=== PATIENT | female | born 1980 | race Caucasian/White ===

== ENCOUNTER 2016-10-30 20:06 | Inpatient (IN) | payer OTHER ==
[~2016-10-30] VITALS: Ht 157.5 cm; Wt 90.7 kg
[2016-10-30] MEDS ORDERED: PREN29TA PO (20:31)
[2016-10-30] MEDS: LACTATED RINGER'S 1000 ML INJ 1,000 ML IV SCH (21:12)
[2016-10-30] MEDS ORDERED: LACTATED RINGER'S 1000 ML INJ 1,000 ML IV PRN (21:12)
--- NOTE | 2016-10-30 21:12 | HHI.HP ---
HPI Chief Complaint Here for induction Date Seen: Oct 30, 2016 Time Seen: 21:09 Travel History International Travel<30 Days: No Contact w/Intl Traveler<30Days: No Known Affected Area: No History of Present Illness HPI 36-year-old female at 42 weeks and 1 day here for induction. She has had an uneventful without any antepartum issues. She received her care with [facility] and her group B strep was negative. Para: 0 : 1 History Past Medical History Medical History: Denies Significant Hx Past Surgical History Surgical History: No Previous Surgery Family History Family History: Negative Social History Alcohol Use: No Tobacco Use: No Substance Abuse: No Allergies-Medications (Allergen,Severity, Reaction): Coded Allergies: No Known Allergies (Unverified , 10/30/16) Home Meds Reported Medications Vit-Iron Carbonyl ( Plus Iron 29-1 mg)1 Tab Tab1 Tab PO DAILY #30 TAB Ref 0 10/30/16 Review of Systems Except as stated in HPI: all other systems reviewed are Neg Physical Exam Narrative GENERAL: Well-nourished, well-developed patient. SKIN: Warm and dry. HEAD: Normocephalic and atraumatic. EYES: No scleral icterus. No injection or drainage. ENT: No nasal drainage noted. Mucous membranes pink. Airway patent. NECK: Supple, trachea midline. No JVD. CARDIOVASCULAR: Regular rate and rhythm without murmurs, gallops, or rubs. RESPIRATORY: Breath sounds equal bilaterally. No accessory muscle use. BREASTS: Bilateral exam showed no masses , no retractions, no nipple discharge. ABDOMEN/GI: Abdomen soft, non-tender, bowel sounds present, no rebound, no guarding Gravid to [37-] weeks size estimated weight by Ismael's is 7-1/2 pounds Fundal Height: [-] GENITOURINARY: External Genitalia: intact and normal in appearance BUS glands: [-Normal] Cervix: [Posterior-] Dilatation: [-Fingertip] Effacement: [-0%] Station: [High-] Presentation: [-Cephalic] Membranes: [intact] Uterine Contractions: [-Occasional] FHT's: Category: [-1] Baseline: [150-] Reactive: [-Moderate] Variability: [Moderate-] Decels: [-Absent] EXTREMITIES: No cyanosis or edema. BACK: Nontender without obvious deformity. No CVA tenderness. NEUROLOGICAL: Awake and alert. Motor and sensory grossly within normal limits. Five out of 5 muscle strength in all muscle groups. Normal speech. Data Data Vital Signs Reviewed: Yes Assessment/Plan Assessment and Plan 36-year-old at 42 weeks and 1 day for induction Plan Cytotec 25 g to repeated every 4 hours Group B strep negative Luh Ortiz MD Oct 30, 2016 21:12
[2016-10-30] MEDS ORDERED: MINERAL OIL 10 ML VIAL TOPICAL PRN (21:15)
[2016-10-30] MEDS ORDERED: SODIUM CHLORIDE 0.9% FLUSH 10 ML FLUSH IV FLUSH PRN (21:15)
[2016-10-30] MEDS ORDERED: ONDANSETRON HCL 4 MG/2 ML VIAL IV PRN (21:15)
[2016-10-30] MEDS ORDERED: CITRIC ACID-SODIUM CITRATE LIQ 30 ML UDC PO SCH (21:15)
[2016-10-30] MEDS ORDERED: LIDOCAINE HCL 1% 50 ML VIAL I-DERMAL PRN (21:15)
[2016-10-30] MEDS ORDERED: LIDOCAINE HCL 1% 50 ML VIAL INFIL PRN (21:15)
[2016-10-30] MEDS ORDERED: OXYTOCIN 30 UNITS-500ML PREMIX 500 ML IV ONE (21:15)
[2016-10-30] MEDS ORDERED: SODIUM CHLORID 0.9% 500 ML INJ 500 ML IV PRN (21:15)
[2016-10-30] MEDS: MISOPROSTOL 25 MCG SUPP VAGINAL SCH (21:15)
[2016-10-30] MEDS ORDERED: SODIUM CHLOR 0.9% 1000 ML INJ 1,000 ML IV PRN (21:32)
[2016-10-30 21:34] LABS: BACTERIA, URINE RARE /hpf; BLOOD, URINE NEG (NEG); COMMENT (UR) CULT NOT INDICATED; CULTURE IF INDICATED CULT NOT INDICATED; GLUCOSE,URINE NEG (NEG); KETONE, URINE NEG (NEG); MUCUS URINE FEW /lpf (OCC); NITRITE,URINE NEG (NEG); PH, URINE 6.5 (5.0-8.5); SQUAMOUS EPITHELIAL CELL URINE 2 /hpf (0-5); URINE COLOR LIGHT-YELLOW (YELLW/STRAW)
[2016-10-30 21:42] LABS: AUTOMATED NEUTROPHIL # 8.5 TH/MM3 (1.8-7.7); BASOPHIL % 0.3 % (0.0-2.0); EOSINOPHIL # 0.1 TH/MM3 (0-0.4); EOSINOPHIL % 1.2 % (0.0-4.0); HEMO FLAGS DIFF FINAL; LYMPH % 13.8 % (9.0-44.0); LYMPHOCYTE # 1.5 TH/MM3 (1.0-4.8); MEAN CELL VOLUME 89.8 FL (80.0-100.0); MEAN CORPUSCULAR HEMOGLOBIN 31.6 PG (27.0-34.0); MEAN CORPUSCULAR HGB CONC 35.3 % (32.0-36.0); MONO % 6.2 % (0.0-8.0); NEUT % 78.5 % (16.0-70.0); PLATELET COUNT 213 TH/MM3 (150-450); RED BLOOD COUNT 4.13 MIL/MM3 (4.00-5.30); RED CELL DISTRIBUTION WIDTH 13.2 % (11.6-17.2); WHITE BLOOD COUNT 10.8 TH/MM3 (4.0-11.0)
[2016-10-30 21:44] VITALS: BP 130/76; PULSE 97
[2016-10-30 21:45] VITALS: RESP 18; TEMP 98.2
[2016-10-31] VITALS (11 sets, daily range): BP systolic 113–147; BP diastolic 67–81; PULSE 81–121; RESP 17–18; TEMP 97.4–97.8
[2016-10-31] MEDS: MISOPROSTOL 25 MCG SUPP VAGINAL SCH ×4 (03:00→13:15)
[2016-10-31] MEDS: LACTATED RINGER'S 1000 ML INJ 1,000 ML IV SCH ×2 (07:00→21:12)
[2016-10-31] MEDS: SODIUM CHLORIDE 0.9% FLUSH 10 ML FLUSH IV FLUSH SCH ×2 (07:48→21:00)
--- NOTE | 2016-10-31 08:09 | PD.LABORPN ---
Subjective Subjective 36-year-old at 42 and 2/7 weeks today. She was admitted yesterday for IOL , with cervical ripening via Cytotec 2. Patient has no complaints this morning , and is not feeling any contractions. She would like to eat. Objective Vital Signs Vital Signs Date Time Temp Pulse Resp B/P Pulse Ox O2 Delivery O2 Flow Rate FiO2 10/31/16 07:20 97.7 91 18 113/67 10/31/16 03:00 18 Objective Pelvic Exam: Cervix: 01/60%/soft/posterior/high Membranes: Intact Uterine Contractions: None noted FHT's: Category: 1 Baseline: 130 Reactive:to 140 Variability: mod Decels: absent Assessment/Plan Assessment and Plan 36-year-old at 42+ weeks, postdates, who is admitted for induction of her OB care with Clary [facility]. Intrauterine : Category 1 tracing, reassuring Expect vaginal delivery Amniotic sac intact Cytotec 2 overnight. Will likely administer another dose of Cytotec Epidural for pain CBC essentially unremarkable. H/H 13.1/37.0. U/A within normal limits IV fluids per protocol Monitor heart tones Routine care GBS negative IRINA Ortiz, YVONNEW Dr. Cleaning, PGY 2 Claudia Rodriguez MD R1 Oct 31, 2016 08:09
--- NOTE | 2016-10-31 11:49 | PD.LABORPN ---
Subjective Subjective Patient resting comfortably in bed. (Isabel Cleaning MD R2) Objective Vital Signs Vital Signs Date Time Temp Pulse Resp B/P Pulse Ox O2 Delivery O2 Flow Rate FiO2 10/31/16 07:20 97.7 91 18 113/67 Objective Pelvic Exam: Cervix: posterior Dilatation: 0 Effacement: 50 Station: -2 Presentation: vertex Membranes: intact Uterine Contractions: none FHT's: Category: I Baseline: 130 Reactive: + Variability: moderate Decels: none (Isabel Cleaning MD R2) Assessment/Plan Assessment and Plan 36 year old at 42-2/7 weeks gestation. 1. IUP- Category I tracing, reassuring. 2. IOL for post-dates- s/p Cytotec x 3. Attempted Ling bulb, however was unsuccessful as cervix remains closed. Will try one more dose of Cytotec. 3. GBS negative. sdw Dr. Pradhan and Dr. Helena Rodriguez R1 (Isabel Cleaning MD R2) Assessment and Plan I saw an examined the patient with the resident physicians. I placed a speculum to visualize the cervix and attempted to place ling catheter. unable to advance catheter into cervical os. Will place another cytotec and reassess in 4 hours (Facundo Pradhan MD) Isabel Cleaning MD R2 Oct 31, 2016 11:49 Facundo Pradhan MD Oct 31, 2016 13:45
--- NOTE | 2016-10-31 16:53 | PD.LABORPN ---
Subjective Subjective Patient was seen and evaluated at bedside. She has received Cytotec x 4 since yesterday evening. Ling bulb placement was attempted at approximately 1130 this morning prior to Ling bulb attempt this morning, unsuccessful due to cervix not dilated enough. Ling bulb placement was reattempted at approximately 1630 with smaller Ling, not successful. Cervix now 1/50%/-3, small change from admission. No CTX. (Claudia Rodriguez MD R1) Objective Vital Signs Vital Signs Date Time Temp Pulse Resp B/P Pulse Ox O2 Delivery O2 Flow Rate FiO2 10/31/16 11:53 97.7 18 10/31/16 11:48 81 139/79 Objective Pelvic Exam: Cervix 1/50%/-3 Membranes: intact Uterine Contractions: none FHT's: Category:1 Baseline: 130 Reactive: y to 150 Variability: mod Decels: absent (Claudia Rodriguez MD R1) Assessment/Plan Assessment and Plan 36-year-old at 42+ weeks, postdates, who is admitted for induction of labor. OB care with Cl[facility]. Intrauterine : Category 1 tracing, reassuring Expect vaginal delivery Amniotic sac intact Cytotec x4 overnight. Ling bulb placement attempted x 2. Patient to eat dinner, shower Will administer Cervidil this evening Epidural for pain PRN CBC essentially unremarkable. H/H 13.1/37.0. U/A within normal limits IV fluids per protocol Monitor heart tones Routine care GBS negative SDW Dr. Pradhan, Dr. Cleaning (Claudia Rodriguez MD R1) Assessment and Plan Cervical exam performed: 50/-3 speculum placed in vagina. difficult to fully visualize cervix secondary to collapsing vaginal tissue. Cervical os identified. attempted to place ling catheter into cervix. multiple attempts to place, but unable to advance ling beyond internal os. Bulb expelled with each fill attempt. Also attempted to place during digital exam, but unable to guide catheter into os. Will give patient rest and allow to eat, then proceed with cervidil. (Facundo Pradhan MD) Claudia Rodriguez MD R1 Oct 31, 2016 16:53 Facundo Pradhan MD Oct 31, 2016 16:56
[2016-10-31] MEDS ORDERED: DINOPROSTONE 10 MG VAG INSERT VAGINAL ONE (17:30)
[2016-11-01] VITALS (70 sets, daily range): BP systolic 104–145; BP diastolic 53–94; PULSE 68–137; RESP 16–18; TEMP 96.5–98.7; O2SAT 99–100
[2016-11-01] MEDS ORDERED: OXYTOCIN 30 UNITS-500ML PREMIX 500 ML IV SCH (07:15)
--- NOTE | 2016-11-01 07:20 | PD.LABORPN ---
Subjective Subjective Patient reports no CTX or complaints. SROM occurred at 0649 this morning, large amount of clear fluid per nurse. Cervidil was placed at 8pm last night, and patient states she may have expelled it but is not sure. (Claudia Rodriguez MD R1) Objective Vital Signs Vital Signs Date Time Temp Pulse Resp B/P Pulse Ox O2 Delivery O2 Flow Rate FiO2 11/01/16 07:08 90 126/83 11/01/16 07:07 18 11/01/16 06:03 97.9 18 11/01/16 06:00 86 124/75 11/01/16 01:57 97.8 18 11/01/16 01:51 96 124/65 Objective Pelvic Exam: Cervix 1-2/50%/-3 Membranes: intact Uterine Contractions: none FHT's: Category:1 Baseline: 120 Reactive: y to 140 Variability: mod Decels: absent (Claudia Rodriguez MD R1) Assessment/Plan Problem List: (1) 42 weeks gestation of Assessment and Plan 36-year-old at 42+ weeks, postdates, who is admitted for induction of labor. OB care with [facility]. Intrauterine : Category 1 tracing, reassuring Expect vaginal delivery Amniotic sac intact Cytotec x4 overnight. Chambers bulb placement attempted x 2. Patient to eat dinner, shower Will administer Cervidil this evening Epidural for pain PRN CBC essentially unremarkable. H/H 13.1/37.0. U/A within normal limits IV fluids per protocol Monitor heart tones Routine care GBS negative Discussed with Dr. Pradhan (Claudia Rodriguez MD R1) Assessment and Plan The exam, history, and the medical decision-making described in the above note were completed with the assistance of the resident provider. I reviewed and agree with the findings presented. I attest that I had a [id number] encounter with the patient on the same day, and personally performed and documented my assessment and findings in the medical record. (Facundo Pradhan MD) Claudia Rodriguez MD R1 Nov 01, 2016 07:20 Facundo Pradhan MD Nov 01, 2016 08:52
[2016-11-01] MEDS: LACTATED RINGER'S 1000 ML INJ 1,000 ML IV SCH (07:58)
[2016-11-01] MEDS: SODIUM CHLORIDE 0.9% FLUSH 10 ML FLUSH IV FLUSH SCH (09:00)
--- NOTE | 2016-11-01 10:46 | PD.LABORPN ---
Subjective Subjective This is a 36y/o at 42w3d who was admitted for induction of labor. S/p 4 doses of cytotec and 1 cervidil. SROM at 0649, clear. Oxytocin was started at 0815 currently at 6mu. Pt is doing well, resting comfortably but breathing through contractions. She would like to try to deliver without an epidural but is not opposed to it. Objective Vital Signs Vital Signs Date Time Temp Pulse Resp B/P Pulse Ox O2 Delivery O2 Flow Rate FiO2 11/01/16 09:34 18 11/01/16 09:33 90 145/94 11/01/16 08:45 18 11/01/16 08:41 100 129/81 11/01/16 08:00 18 11/01/16 07:56 90 125/79 11/01/16 07:40 97.4 11/01/16 07:08 90 126/83 11/01/16 07:07 18 11/01/16 06:03 97.9 18 11/01/16 06:00 86 124/75 Objective Pelvic Exam: VE: 3/70/-2 Membranes:ruptured Uterine Contractions: q 1-2 minutes apart; IUPC placed FHT's: Category: 1, segment of loss of contact, ISE placed after IUPC ? presentation due to inability to get FHR on external monitor bedside us: vertex, maybe asynclitic. Assessment/Plan Problem List: (1) 42 weeks gestation of Assessment and Plan 36y/o at 42w3d s/p long course cervical ripening, currently on oxytocin with SROM. -reassuring status -discussed benefits of epidural in depth as well as labor process -pt will decide -anticipate Cristy Garrison MD Nov 01, 2016 10:46
[2016-11-01] MEDS ORDERED: fentaNYL 2MCG-BUPIV 0.125% INJ 100 ML ONE (13:07)
--- NOTE | 2016-11-01 13:56 | PD.LABORPN ---
Subjective Subjective Patient resting in bed comfortably with epidural in place. (Isabel Cleannig MD R2) Objective Vital Signs Vital Signs Date Time Temp Pulse Resp B/P Pulse Ox O2 Delivery O2 Flow Rate FiO2 11/01/16 13:31 112 134/93 11/01/16 13:30 89 11/01/16 13:28 98 132/78 11/01/16 13:26 89 142/86 11/01/16 13:25 89 11/01/16 13:15 88 11/01/16 13:09 97.5 18 11/01/16 13:05 86 11/01/16 13:02 87 144/85 11/01/16 13:00 89 11/01/16 12:18 79 133/74 11/01/16 12:15 76 11/01/16 12:00 79 124/68 11/01/16 11:59 18 11/01/16 11:55 86 11/01/16 11:50 85 11/01/16 11:13 97.8 18 11/01/16 11:10 96 11/01/16 11:05 93 11/01/16 11:00 94 11/01/16 10:50 110 11/01/16 10:46 104 141/83 11/01/16 09:34 18 11/01/16 09:33 90 145/94 11/01/16 08:45 18 11/01/16 08:41 100 129/81 11/01/16 08:00 18 11/01/16 07:56 90 125/79 11/01/16 07:40 97.4 11/01/16 07:08 90 126/83 11/01/16 07:07 18 11/01/16 06:03 97.9 18 11/01/16 06:00 86 124/75 Objective Pelvic Exam: Cervix: posterior Dilatation: 4-5 Effacement: 70 Station: -2 Presentation: vertex Membranes: ruptured Uterine Contractions: q2-3min FHT's: Category: II Baseline: 120 Reactive: + Variability: moderate Decels: intermittent variable decelerations (Isabel Cleaning MD R2) Assessment/Plan Problem List: (1) 42 weeks gestation of Assessment and Plan 36 year old at 42-3/7 weeks gestation. 1. IUP- Category II tracing, s/p amnioinfusion, continue IV fluids and position changes, continue to monitor. 2. IOL for post-dates- s/p Cytotec x 4. Attempted Chambers bulb, however unsuccessful. s/p Cervidil overnight, SROM, now on Pitocin 230. Cervical change noted. 3. Epidural for pain control. 4. GBS negative. dw Dr. Garrison (Isabel Cleaning MD R2) Assessment and Plan Agree with above. D/w pt intolerance of labor with recurrent variable decelerations with oxytocin. Oxytocin has been started and stopped multiple times during the day. Will keep pit off and restart once fetus has recovered. Explained that with this pattern of pitocin being on/off all day my suspicion is that pt will need a c/s. (Cristy Garrison MD) Isabel Cleaning MD R2 Nov 01, 2016 13:56 Cristy Garrison MD Nov 01, 2016 15:23
[2016-11-01] MEDS ORDERED: OXYTOCIN 10 UNIT/ML AMP ONE (15:48)
[2016-11-01] MEDS ORDERED: EPIDURAL-NO SYSTEMIC NARCOTICS PRN (16:45)
[2016-11-01] MEDS ORDERED: EPIDURAL-NALOXONE HCL 0.4 MG/ML AMP IV PRN (16:45)
[2016-11-01] MEDS ORDERED: EPIDURAL-DIPHENHYDRAMINE HCL 50 MG CAP PO PRN (16:45)
[2016-11-01] MEDS ORDERED: EPIDURAL-DIPHENHYDRAMINE HCL 50 MG/ML VIAL IV PUSH PRN (16:45)
[2016-11-01] MEDS ORDERED: EPIDURAL-DO NOT ADMINISTER ANTICOAGULANTS PRN (16:45)
[2016-11-01] MEDS ORDERED: ONDANSETRON HCL 4 MG/2 ML VIAL ONE (16:55)
[2016-11-01] MEDS ORDERED: MORPHINE SULFATE PF 5 MG/10 ML VIAL ONE (16:55)
[2016-11-01] MEDS ORDERED: SIMETHICONE 80 MG CHEWABLE TAB PO PRN (17:00)
[2016-11-01] MEDS ORDERED: ZOLPIDEM TARTRATE 5 MG TAB PO PRN (17:00)
[2016-11-01] MEDS ORDERED: OXYTOCIN 30 UNITS-500ML PREMIX 500 ML IV ONE (17:00)
[2016-11-01] MEDS ORDERED: ACETAMINOPHEN 325 MG TAB PO PRN (17:00)
[2016-11-01] MEDS ORDERED: SODIUM CHLORIDE 0.9% FLUSH 10 ML FLUSH IV FLUSH PRN (17:00)
[2016-11-01] MEDS ORDERED: oxyCODONE/ACETAMINOPHEN 5 MG/325 MG TAB PO PRN (17:00)
[2016-11-01] MEDS ORDERED: DOCUSATE SODIUM 50 MG/SENNA 8.6 MG TAB PO PRN (17:00)
--- NOTE | 2016-11-01 17:04 | PD.OP ---
Operative Report Date of Surgery: Nov 01, 2016 Preoperative Diagnosis: (1) 42 weeks gestation of (2) Non-reassuring electronic monitoring tracing Postoperative Diagnosis: (1) 42 weeks gestation of (2) Non-reassuring electronic monitoring tracing Procedure: Low Transverse Section Anesthesia: epidural Surgeon: Dr. Garrison Window Systems Administrator(s): Lauren Longoria and Hamida Child Resident Surgeon: Dr. Cleaning PGY-2 Operation and Findings: Findings: Normal tubes/ovaries bilaterally delivery of a viable male Apgars 8/9. Birthweight 3990g. Pathology: placenta, cord, membranes sent for evaluation This is a 36y/o at 42w3d who was admitted for post dates induction of labor. During the admission she received 4 cytotec, and 1 cervidil. SROM was at 0649 with oxytocin started at 8am. Over the course of the day oxytocin was stopped and restarted a few times due to recurrent variable decelerations. The patient was counseled throughout the day about the tracing and the potential for c/s given intolerance to oxytoin. After informed consent was obtained the patient was taken to the operating room where her epidural anesthesia was found to be adequate. A Chambers catheter was already in place and she was prepared and draped in the normal sterile fashion in the dorsal supine position with a leftward tilt. A Pfannenstiel/midline skin incision was then made with the scalpel and carried through to the underlying layer of fascia with the Bovie. The fascia was incised in the midline and extended laterally with the Bull scissors. The incision was then grasped with the Karri clamps, elevated and the underlying rectus muscles dissected off bluntly/sharply with the Bull scissors. Attention was then turned to the inferior aspect of this incision which, in a similar fashion, was grasped, tented up with the Karri clamps, and the rectus muscles dissected off bluntly/sharply with the Bull scissors. The rectus muscles were then in the midline, and the peritoneum identified, tented up, and entered bluntly using manual dissection. The peritoneal incision was then extended superiorly and inferiorly with good visualization of the bladder. The bladder blade was then inserted and the lower uterine segment was incised in a transverse fashion with the scalpel. The uterine incision was then extended laterally digitally. The bladder blade was removed then the 's head delivered atraumatically, nuchal times 2 was reduced, the body was delivered atraumatically. The cord clamped and cut after 30 seconds and the was handed to the awaiting baby nurse. The placenta was then removed, the uterus exteriorized, and cleared of all clots and debris. The uterine incision was repaired with 0 Monocryl in a running, locked fashion. A second layer of the same suture was used in an imbricating fashion to obtain excellent hemostasis. The abdominal cavity was cleaned with a moist lap and the uterus was replaced into the abdomen. The gutters were cleared of all clots and debris the hysterotomy site was noted to be hemostatic. The peritoneum was closed with 2-0 Vicryl in a running fashion. The fascia was then reapproximated with 0 Vicryl in a running fashion. The subcutaneous tissue was closed with 3-0 chromic and the skin was closed with 4-0 in a subcuticular fashion noting excellent hemostasis. Dermabond was placed along the length of the incision. The patient tolerated the procedure well. Sponge, lap and needle counts were correct times two. The patient was taken to the recovery room in stable condition. Attestation I was present and scrubbed for the entire case and actively assisted in the procedure. Isabel Cleaning MD R2 Nov 01, 2016 17:04 Cristy Garrison MD Nov 01, 2016 19:26
[2016-11-01] MEDS ORDERED: OXYTOCIN 30 UNITS-500ML PREMIX 500 ML ONE (17:34)
[2016-11-01] MEDS ORDERED: SODIUM CHLORIDE 0.9% FLUSH 10 ML FLUSH IV FLUSH SCH (21:00)
[2016-11-01] MEDS ORDERED: LACTATED RINGER'S 1000 ML INJ 1,000 ML IV SCH (22:00)
[2016-11-01] MEDS: ONDANSETRON HCL 4 MG/2 ML VIAL IV PUSH PRN (22:01)
[2016-11-02] MEDS ORDERED: OXYTOCIN 30 UNITS-500ML PREMIX 500 ML IV PRN (03:00)
[2016-11-02 04:00] VITALS: BP 103/54; PULSE 80; RESP 18; TEMP 98.1
[2016-11-02] MEDS: ONDANSETRON HCL 4 MG/2 ML VIAL IV PUSH PRN (04:39)
[2016-11-02] MEDS ORDERED: LACTATED RINGER'S 1000 ML INJ 500 ML IV SCH (05:15)
[2016-11-02] MEDS: LACTATED RINGER'S 1000 ML INJ 1,000 ML IV SCH (06:24)
--- NOTE | 2016-11-02 07:17 | HHI.OB ---
Subjective Remarks Postoperative day # 1. AFVSS overnight. Incision not draining. Decreased lochia. Denies dysuria. She is feeding the baby via breast. Appetite improving, however she has had nausea and vomiting overnight. Zofran is helping. Positive flatus. Ambulating well. Denies calf pain or shortness of breath. She is doing well this morning. (Isabel Cleaning MD R2) Objective Vitals/I&O Vital Signs Date Time Temp Pulse Resp B/P Pulse Ox O2 Delivery O2 Flow Rate FiO2 11/02/16 04:00 80 18 103/54 11/02/16 04:00 98.1 11/01/16 23:30 97.8 11/01/16 23:30 105 18 131/67 11/01/16 19:24 98.0 11/01/16 19:24 77 18 125/75 11/01/16 18:40 81 16 116/71 11/01/16 18:40 98.7 11/01/16 18:00 96.7 11/01/16 18:00 104/56 11/01/16 17:51 82 18 100 11/01/16 17:45 115/58 11/01/16 17:41 79 18 110/53 100 11/01/16 17:23 81 18 99 11/01/16 17:20 107/54 11/01/16 17:05 96.5 91 18 99 11/01/16 17:05 123/66 11/01/16 15:45 88 11/01/16 15:30 68 11/01/16 15:30 74 124/74 11/01/16 15:15 69 11/01/16 15:15 74 118/70 11/01/16 15:06 97.6 11/01/16 15:05 110 11/01/16 15:00 89 114/64 11/01/16 15:00 83 11/01/16 14:49 18 11/01/16 14:45 77 11/01/16 14:45 73 118/57 11/01/16 14:31 75 120/59 11/01/16 14:30 82 11/01/16 14:25 76 11/01/16 14:20 79 11/01/16 14:15 18 11/01/16 14:15 101 11/01/16 14:15 91 121/65 11/01/16 14:10 98 11/01/16 14:05 113 11/01/16 14:01 137 121/64 11/01/16 14:00 127 11/01/16 13:56 108 115/53 11/01/16 13:55 105 11/01/16 13:50 112 11/01/16 13:46 112 127/64 11/01/16 13:45 117 11/01/16 13:40 108 135/76 11/01/16 13:40 107 11/01/16 13:35 102 11/01/16 13:35 102 132/71 11/01/16 13:33 93 139/82 11/01/16 13:31 112 134/93 11/01/16 13:30 89 11/01/16 13:28 98 132/78 11/01/16 13:26 89 142/86 11/01/16 13:25 89 11/01/16 13:15 88 11/01/16 13:09 97.5 18 11/01/16 13:05 86 11/01/16 13:02 87 144/85 11/01/16 13:00 89 11/01/16 12:18 79 133/74 11/01/16 12:15 76 11/01/16 12:00 79 124/68 11/01/16 11:59 18 11/01/16 11:55 86 11/01/16 11:50 85 11/01/16 11:13 97.8 18 11/01/16 11:10 96 11/01/16 11:05 93 11/01/16 11:00 94 11/01/16 10:50 110 11/01/16 10:46 104 141/83 11/01/16 09:34 18 11/01/16 09:33 90 145/94 11/01/16 08:45 18 11/01/16 08:41 100 129/81 11/01/16 08:00 18 11/01/16 07:56 90 125/79 11/01/16 07:40 97.4 (Isabel Cleaning MD R2) Result Diagram: 10/30/162039 Objective Remarks GENERAL: Well-nourished, well-developed patient. CARDIOVASCULAR: Regular rate and rhythm without murmurs, gallops, or rubs. RESPIRATORY: Breath sounds equal bilaterally. No accessory muscle use. ABDOMEN/GI: Abdomen soft, non-tender, bowel sounds present. Incision: Clean, dry and intact. Fundus: Firm, non-tender at umbilicus. GENITOURINARY: Light to moderate bleeding. EXTREMITIES: No cyanosis or edema, non-tender, without signs of DVT. Medications and IVs Current Medications Medications (Trade) Dose Ordered Sig/Jey Route Start Time Stop Time Status Last Admin Lactated Ringer's 1,000 ml @ 125 mls/hr Q8H IV 10/30/16 21:12 11/02/16 06:24 Lactated Ringer's 1,000 ml @ 3,000 mls/hr Q20M PRN IV 10/30/16 21:12 (NS 1000 ml Inj) 1,000 ml @ 100 mls/hr Q10H PRN IV 10/30/16 21:32 11/01/16 11:00 (fentaNYL INJ) 50 mcg Q1H PRN IV PUSH 10/30/16 21:15 (fentaNYL INJ) 100 mcg Q1H PRN IV PUSH 10/30/16 21:15 11/01/16 10:59 Mineral Oil 10 ml 10 ml UNSCH PRN TOPICAL 10/30/16 21:15 Oxytocin 500 ml @ 0 mls/hr TITRATE IV 11/01/16 07:15 11/01/16 07:58 (Lr 1000 ml Inj) 1,000 ml @ 100 mls/hr Q10H IV 11/01/16 22:00 11/02/16 17:59 11/02/16 01:08 (NS Flush) 2 ml BID IV FLUSH 11/01/16 21:00 (NS Flush) 2 ml UNSCH PRN IV FLUSH 11/01/16 17:00 (Mylicon Chew) 80 mg QID PRN PO 11/01/16 17:00 (Tylenol) 650 mg Q6H PRN PO 11/01/16 17:00 (Motrin) 600 mg Q6H PRN PO 11/01/16 17:00 (Percocet 5-325 Mg) 1 tab Q4H PRN PO 11/01/16 17:00 (Percocet 5-325 Mg) 2 tab Q4H PRN PO 11/01/16 17:00 (Jacklyn-Colace) 2 tab Q12H PRN PO 11/01/16 17:00 (Ambien) 5 mg HS PRN PO 11/01/16 17:00 (M-M-R Ii Inj) 0.5 ml ONCE ONCE SQ 11/02/16 16:00 11/02/16 16:01 (Boostrix Inj) 0.5 ml ONCE ONCE IM 11/02/16 16:00 11/02/16 16:01 (Zofran Inj) 4 mg Q6H PRN IV PUSH 11/01/16 17:00 11/02/16 04:39 Miscellaneous Information NO SYSTEMIC NARCOTICS TO BE GIVEN FO... UNSCH PRN .XX 11/01/16 16:45 11/02/16 16:44 (Narcan Inj) 0.4 mg UNSCH PRN IV 11/01/16 16:45 11/02/16 16:44 (Benadryl Inj) 25 mg Q6H PRN IV PUSH 11/01/16 16:45 11/02/16 16:44 (Benadryl) 50 mg Q6H PRN PO 11/01/16 16:45 11/02/16 16:44 Miscellaneous Information ALL NURSING DEPARTMENTS UNSCH PRN .XX 11/01/16 16:45 11/02/16 16:44 (Isabel Cleaning MD R2) Assessment/Plan Assessment and Plan 36 y/o female who is POD# 1 s/p for non-reassuring heart tracing. -Continue routine care. -Percocet and Motrin PRN pain. -AM Hgb pending -Encouraged OOB. Advised pelvic rest for 6 wks. Will need a f/u appt. in 1 wk for incision check. -Re: ctrl, she would like OCP. -D/c in 1-[address] Garrison and Dr. Helena Rodriguez R1 (Isabel Cleaning MD R2) Attending Attestation Agree with above. f/u cbc light diet this am until nausea is resolved. (Cristy Garrison MD) Isabel Cleaning MD R2 Nov 02, 2016 07:17 Cristy Garrison MD Nov 02, 2016 08:45
[2016-11-02 08:40] VITALS: BP 97/47; PULSE 77; RESP 18; TEMP 98.4
[2016-11-02 10:06] LABS: AUTOMATED NEUTROPHIL # 10.5 TH/MM3 (1.8-7.7); BASOPHIL % 0.3 % (0.0-2.0); EOSINOPHIL % 0.2 % (0.0-4.0); HEMATOCRIT 37.6 % (35.0-46.0); HEMO FLAGS DIFF FINAL; LYMPH % 9.4 % (9.0-44.0); LYMPHOCYTE # 1.2 TH/MM3 (1.0-4.8); MEAN CELL VOLUME 91.1 FL (80.0-100.0); MONO % 5.7 % (0.0-8.0); NEUT % 84.4 % (16.0-70.0); PLATELET COUNT 172 TH/MM3 (150-450); RED BLOOD COUNT 4.13 MIL/MM3 (4.00-5.30); RED CELL DISTRIBUTION WIDTH 13.4 % (11.6-17.2); WHITE BLOOD COUNT 12.4 TH/MM3 (4.0-11.0)
[2016-11-02] MEDS: IBUPROFEN 600 MG TAB PO PRN ×3 (10:22→22:09)
[2016-11-02] MEDS ORDERED: DIPHTH/TETANUS/ACEL PERTUSSIS (BOOSTER) 0.5 ML VIAL/PFS IM ONE (16:00)
[2016-11-02] MEDS ORDERED: MEASLES, MUMPS, RUBELLA VACCINE 0.5 ML VIAL SQ ONE (16:00)
[2016-11-02 21:30] VITALS: BP 104/66; PULSE 80; RESP 18; TEMP 97.9
[2016-11-02] MEDS: oxyCODONE/ACETAMINOPHEN 5 MG/325 MG TAB PO PRN (23:46)
[2016-11-03] MEDS: IBUPROFEN 600 MG TAB PO PRN ×2 (05:54→13:59)
[2016-11-03] MEDS: oxyCODONE/ACETAMINOPHEN 5 MG/325 MG TAB PO PRN (05:55)
--- NOTE | 2016-11-03 07:08 | HHI.OB ---
Subjective Remarks No acute issues overnight. Vitals are stable, patient remains afebrile. Her soreness is well controlled with the pain medication although she has only taken 1 Percocet. She is breast-feeding well. She has been ambulating, voiding , and stooling without difficulty. Her nausea has resolved and she is tolerating by mouth. Objective Vitals/I&O Vital Signs Date Time Temp Pulse Resp B/P Pulse Ox O2 Delivery O2 Flow Rate FiO2 11/02/16 21:30 97.9 80 18 104/66 11/02/16 08:40 98.4 77 18 97/47 Result Diagram: 11/02/16 0934 Objective Remarks GENERAL: Well-nourished, well-developed patient. CARDIOVASCULAR: Regular rate and rhythm without murmurs, gallops, or rubs. RESPIRATORY: Breath sounds equal bilaterally. No accessory muscle use. ABDOMEN/GI: Abdomen soft, non-tender, bowel sounds present. Incision: Clean, dry and intact. Fundus: Firm, non-tender at umbilicus. GENITOURINARY: Light to moderate bleeding. EXTREMITIES: No cyanosis or edema, non-tender, without signs of DVT. Medications and IVs Current Medications Medications (Trade) Dose Ordered Sig/Jey Route Start Time Stop Time Status Last Admin Lactated Ringer's 1,000 ml @ 125 mls/hr Q8H IV 10/30/16 21:12 11/02/16 06:24 Lactated Ringer's 1,000 ml @ 3,000 mls/hr Q20M PRN IV 10/30/16 21:12 (NS 1000 ml Inj) 1,000 ml @ 100 mls/hr Q10H PRN IV 10/30/16 21:32 11/01/16 11:00 (fentaNYL INJ) 50 mcg Q1H PRN IV PUSH 10/30/16 21:15 (fentaNYL INJ) 100 mcg Q1H PRN IV PUSH 10/30/16 21:15 11/01/16 10:59 Mineral Oil 10 ml 10 ml UNSCH PRN TOPICAL 10/30/16 21:15 (Pitocin 30 Units-NS 500 ml Premix) 500 ml @ 0 mls/hr TITRATE IV 11/01/16 07:15 11/01/16 07:58 (NS Flush) 2 ml BID IV FLUSH 11/01/16 21:00 (NS Flush) 2 ml UNSCH PRN IV FLUSH 11/01/16 17:00 (Mylicon Chew) 80 mg QID PRN PO 11/01/16 17:00 (Tylenol) 650 mg Q6H PRN PO 11/01/16 17:00 (Motrin) 600 mg Q6H PRN PO 11/01/16 17:00 11/03/16 05:54 (Percocet 5-325 Mg) 1 tab Q4H PRN PO 11/01/16 17:00 11/03/16 05:55 (Percocet 5-325 Mg) 2 tab Q4H PRN PO 11/01/16 17:00 (Jacklyn-Colace) 2 tab Q12H PRN PO 11/01/16 17:00 11/03/16 05:53 (Ambien) 5 mg HS PRN PO 11/01/16 17:00 (Zofran Inj) 4 mg Q6H PRN IV PUSH 11/01/16 17:00 11/02/16 04:39 Assessment/Plan Problem List: (1) delivery delivered Assessment and Plan 36 y/o female who is POD# 2 s/p for non-reassuring heart tracing. -Continue routine care. -Percocet and Motrin PRN pain. -Hemoglobin stable at 12.8. -Encouraged OOB. Advised pelvic rest for 6 wks. Will need a f/u appt. in 1 wk for incision check. -Re: ctrl, she would like OCP. - Discharged home today dw Dr. Burgos and Dr. Helena Rodriguez R1 Isabel Cleaning MD R2 Nov 03, 2016 07:08
[2016-11-03] MEDS ORDERED: PERI8.6T PO (07:09)
[2016-11-03] MEDS ORDERED: OXYC1TAB63 PO (07:09)
[2016-11-03] MEDS ORDERED: IBUP-232 PO (07:09)
--- NOTE | 2016-11-03 07:09 | HHI.DCPOC ---
Discharge Care Plan Diagnosis: (1) delivery delivered Report Symptoms to Your Doctor -Temperature above 100.5 degrees -Redness, of incision or excessive or foul smelling drainage -Unusual pain or calf pain -Increased vaginal bleeding -Painful or difficulty urinating -Feelings of extreme sadness or anxiety after 2 weeks Goals to Promote Your Health * To prevent worsening of your condition and complications * To maintain your health at the optimal level Directions to Meet Your Goals Take your medications as prescribed Follow your dietary instruction Follow activity as directed Ensure plenty of rest for recovery Drink fluids for hydration Keep your appointments as scheduled Take your immunizations and boosters as scheduled If your symptoms worsen call your PCP, if no PCP go to Urgent Care Center or Emergency Room Smoking is Dangerous to Your Health. Avoid second hand smoke Call the 24-hour crisis hotline for domestic abuse at [facility] Cleaning MD R2 Nov 03, 2016 07:09
[2016-11-03 08:20] VITALS: BP 112/66; PULSE 76; RESP 18; TEMP 97.7
== END 2016-11-03 15:45 | disposition home or self-care (01) | DRG 766 ==
LOC: H2EB 20:06 → H1EA 11-01 18:36
PROVIDERS: ADMIT Obstetrics & Gynecology Obstetrics; ATTEND Obstetrics & Gynecology Obstetrics
PROC: 3E0P7GC Introduction of Other Therapeutic Substance into Female Reproductive, Via Natural or Artificial Opening (ICD-10-PCS; 2016-10-30)
PROC: 10D00Z1 Extraction of Products of Conception, Low, Open Approach (ICD-10-PCS; principal; 2016-11-01)
PROC: 3E033VJ Introduction of Other Hormone into Peripheral Vein, Percutaneous Approach (ICD-10-PCS; 2016-11-01)
PROC: 3E0E77Z Introduction of Electrolytic and Water Balance Substance into Products of Conception, Via Natural or Artificial Opening (ICD-10-PCS; 2016-11-01)
DX: O48.0 Post-term pregnancy (principal); O76 Abnormality in fetal heart rate and rhythm complicating labor and delivery; Z37.0 Single live birth; Z3A.42 42 weeks gestation of pregnancy
CPT/HCPCS: 76815; 81001; 85025; 86900; 86901; 88307; 90715; J2274; J2405; J2590; J3010; J7030; J7120